=== PATIENT | female | born 1990 | race Two or more races ===

== ENCOUNTER 2017-05-10 17:28 | Emergency (ER) | payer SELFPAY ==
[~2017-05-10] VITALS: Ht 154.9 cm; Wt 50.4 kg
[2017-05-10] MEDS ORDERED: IV NORMAL SALINE 1000ML BAG 1,000 ML IV SCH (18:17)
[2017-05-10 18:23] LABS: BASO # 0.1 x10^3/uL (0.0-0.2); BASO % 1 % (0-3); EOS % 1 % (0-3); HEMATOCRIT 40.7 % (36.0-47.0); HEMOGLOBIN 13.6 g/dL (12.0-15.5); LYMPH # 3.3 x10^3/uL (1.0-4.8); LYMPH % 32 % (24-48); MEAN CORPUSCULAR HEMOGLOBIN 29 pg (25-35); MEAN CORPUSCULAR HGB CONC 33 g/dL (31-37); MEAN CORPUSCULAR VOLUME 88 fL (79-100); MONO % 6 % (0-9); NEUT % 61 % (31-73); PLATELET COUNT 281 x10^3/uL (140-400); RED BLOOD COUNT 4.62 x10^6/uL (3.50-5.40); RED CELL DISTRIBUTION WIDTH 13.5 % (11.5-14.5); WHITE BLOOD COUNT 10.5 x10^3/uL (4.0-11.0)
[2017-05-10 18:25] LABS: BILIRUBIN,URINE NEGATIVE (NEG); GLUCOSE,URINE NEGATIVE (NEG); NITRITE,URINE NEGATIVE (NEG); PROTEIN,URINE NEGATIVE (NEG-TRACE); UROBILINOGEN,URINE 0.2 mg/dL (0.2 mg/dL)
--- NOTE | 2017-05-10 18:27 | PHYS DOC ---
Past Medical History Past Medical History: No Pertinent History Past Surgical History: No Surgical History Alcohol Use: Rarely Drug Use: None Adult General Chief Complaint Chief Complaint: NEAR SYNCOPE HPI HPI Patient is a 26 year old female who presents with complaint of lightheadedness. The patient states that she was with friends yesterday and states that she "only drank 2 beers," then states that she suddenly woke in bed earlier this morning. Patient does not remember how she got into bed. Patient states that she has been lightheaded and shaky throughout the day today. Patient also has developed light headache in the back of her head. The patient states that she had to leave work early due to symptoms. The patient states that currently she feels mild fatigue and shaky all over. Patient denies any fevers, chest pain, or shortness of breath currently. Patient states that she has had history of anxiety but has felt well over the past several months and has not been on any medications. The patient states that she has not taken any drugs and states that the individuals that she was with yesterday are close friends and she has low suspicion that they would have put something in her drink that would have made her pass out. Review of Systems Review of Systems Constitutional: Lightheadedness, denies fever or chills [] Eyes: Denies change in visual acuity, redness, or eye pain [] HENT: Denies nasal congestion or sore throat [] Respiratory: Denies cough or shortness of breath [] Cardiovascular: Denies chest pain or edema[] GI: Denies abdominal pain, nausea, vomiting, bloody stools or diarrhea [] : Denies dysuria or hematuria [] Musculoskeletal: Denies back pain or joint pain [] Integument: Denies rash or skin lesions [] Neurologic: Headache, denies focal weakness or sensory changes [] Current Medications Current Medications Current Medications Medications (Trade) Dose Ordered Sig/Blanquita Start Time Stop Time Status Last Admin Dose Admin Sodium Chloride 1,000 ml @ 1,000 mls/hr Q1H 05/10/17 18:17 05/10/17 19:16 DC 05/10/17 18:53 1,000 MLS/HR Allergies Allergies Allergies Coded Allergies Type Severity Reaction Last Updated Verified No Known Drug Allergies 05/10/17 No Physical Exam Physical Exam Constitutional: Well developed, well nourished, no acute distress, non-toxic appearance. [] HENT: Normocephalic, atraumatic, bilateral external ears normal, oropharynx moist, no oral exudates, nose normal. [] Eyes: PERRLA, EOMI, conjunctiva normal, no discharge. [] Neck: Normal range of motion, no tenderness, supple, no stridor. [] Cardiovascular:Heart rate regular rhythm, no murmur [] Lungs & Thorax: Bilateral breath sounds clear to auscultation [] Abdomen: Bowel sounds normal, soft, no tenderness, no masses, no pulsatile masses. [] Skin: Warm, dry, no erythema, no rash. [] Back: No tenderness, no CVA tenderness. [] Extremities: No tenderness, no cyanosis, no clubbing, ROM intact, no edema. [] Neurologic: Alert and oriented X 3, normal motor function, normal sensory function, no focal deficits noted. [] Current Patient Data Vital Signs Vital Signs Date Time Temp Pulse Resp B/P (MAP) Pulse Ox O2 Delivery O2 Flow Rate FiO2 05/10/17 17:40 98.2 80 20 124/76 (92) 100 Room Air 98.2 Lab Values Laboratory Tests Test 05/10/17 17:48 05/10/17 17:57 White Blood Count 10.5 x10^3/uL (4.0-11.0) Red Blood Count 4.62 x10^6/uL (3.50-5.40) Hemoglobin 13.6 g/dL (12.0-15.5) Hematocrit 40.7 % (36.0-47.0) Mean Corpuscular Volume 88 fL (79-100) Mean Corpuscular Hemoglobin 29 pg (25-35) Mean Corpuscular Hemoglobin Concent 33 g/dL (31-37) Red Cell Distribution Width 13.5 % (11.5-14.5) Platelet Count 281 x10^3/uL (140-400) Neutrophils (%) (Auto) 61 % (31-73) Lymphocytes (%) (Auto) 32 % (24-48) Monocytes (%) (Auto) 6 % (0-9) Eosinophils (%) (Auto) 1 % (0-3) Basophils (%) (Auto) 1 % (0-3) Neutrophils # (Auto) 6.4 x10^3uL (1.8-7.7) Lymphocytes # (Auto) 3.3 x10^3/uL (1.0-4.8) Monocytes # (Auto) 0.6 x10^3/uL (0.0-1.1) Eosinophils # (Auto) 0.1 x10^3/uL (0.0-0.7) Basophils # (Auto) 0.1 x10^3/uL (0.0-0.2) Urine Collection Type Unknown Urine Color Yellow Urine Clarity Cloudy Urine pH 8.0 Urine Specific [place] 1.025 Urine Protein Negative mg/dL (NEG-TRACE) Urine Glucose (UA) Negative mg/dL (NEG) Urine Ketones (Stick) Negative mg/dL (NEG) Urine Blood Negative (NEG) Urine Nitrite Negative (NEG) Urine Bilirubin Negative (NEG) Urine Urobilinogen Dipstick 0.2 mg/dL (0.2 mg/dL) Urine Leukocyte Esterase Small (NEG) Urine RBC 1-2 /HPF (0-2) Urine WBC 1-4 /HPF (0-4) Urine Squamous Epithelial Cells Many /LPF Urine Bacteria Many /HPF (0-FEW) Urine Mucus Marked /LPF Sodium Level 140 mmol/L (136-145) Potassium Level 4.2 mmol/L (3.5-5.1) Chloride Level 104 mmol/L (98-107) Carbon Dioxide Level 26 mmol/L (21-32) Anion Gap 10 (6-14) Blood Urea Nitrogen 12 mg/dL (7-20) Creatinine 0.6 mg/dL (0.6-1.0) Estimated GFR (Cockcroft-Gault) 122.8 Glucose Level 87 mg/dL (70-99) Calcium Level 8.8 mg/dL (8.5-10.1) Magnesium Level 2.7 mg/dL (1.8-2.4) H Thyroid Stimulating Hormone (TSH) 1.966 uIU/mL (0.358-3.74) POC Urine HCG, Qualitative Hcg negative (Negative) Laboratory Tests 05/10/17 17:48 Laboratory Tests 05/10/17 17:48 EKG EKG Interpreted by me: Heart rate 51, sinus rhythm, normal intervals, normal axis, no acute ST/T-wave abnormalities present Radiology/Procedures Radiology/Procedures Not performed[] Course & Med Decision Making Course & Med Decision Making Pertinent Labs and Imaging studies reviewed. (See chart for details) The patient was given IV fluids in the emergency department. Patient's lab work was unremarkable with the exception of a mildly elevated magnesium level which does not appear to be clinically significant. The patient continues to feel well at this time. I suspect that the patient's symptoms are likely a combination of mild dehydration as well as an increase in stress levels. I recommended that the patient return home for rest and hydration. The patient was given a work note to return to work in 2 days. Also recommended to follow- up with primary doctor in 2-3 days for reevaluation and to return emergency department for any worsening symptoms. Patient voiced understanding and in agreement with treatment plan. Dragon Disclaimer Dragon Disclaimer This electronic medical record was generated, in whole or in part, using a voice recognition dictation system. Departure Departure Impression: Primary Impression: Dehydration Additional Impression: Lightheadedness Disposition: 01 HOME, SELF-CARE Condition: IMPROVED Patient Instructions: Dehydration, Adult Additional Instructions: Follow-up with your primary doctor in 2-3 days for reevaluation. Return to the emergency department for any worsening symptoms. Problem Qualifiers PARDEEP HERNANDEZ MD May 10, 2017 18:27
[2017-05-10 18:36] LABS: CALCIUM 8.8 mg/dL (8.5-10.1); CREATININE 0.6 mg/dL (0.6-1.0); GFR 122.8; MAGNESIUM 2.7 mg/dL (1.8-2.4); POTASSIUM 4.2 mmol/L (3.5-5.1)
[2017-05-10 18:39] LABS: BACTERIA,URINE MANY /HPF (0-FEW); SQUAMOUS EPITHELIAL CELL,UR MANY /LPF
--- NOTE | 2017-05-10 18:45 | EKG ---
[facility] [address] [place] [address] Test Date: 2017-05-10 Test Time: 18:28:41 Pat Name: MEME CUNNINGHAM Department: Room: Gender: F Licensed Veterinary Technician: : 1990 Requested By: PARDEEP HERNANDEZ Order Number: [id number] Reading MD: Quinton Dunn Measurements Intervals [place] Rate: 51 P: -22 MI: 142 QRS: 77 QRSD: 86 T: 47 QT: 410 QTc: 380 Interpretive Statements SINUS RHYTHM Electronically Signed On 05-12-2017 13:14:56 CDT by Quinton Dunn
[2017-05-10 20:05] VITALS: BP 114/66
== END 2017-05-10 20:07 | disposition home or self-care (01) ==
LOC: ER 17:28
DX: E86.0 Dehydration (principal); R42 Dizziness and giddiness; R51 Headache; R53.83 Other fatigue; R25.1 Tremor, unspecified; F41.9 Anxiety disorder, unspecified
CPT/HCPCS: 36415; 80048; 81001; 81025; 83735; 84443; 85025; 87086; 93005; 96360; 99285; J7030